=== PATIENT | female | born 1960 | race Caucasian/White ===

== ENCOUNTER 2021-10-27 01:25 | Emergency (ER) | payer BC ==
--- NOTE | 2021-10-27 01:59 | ERPHSYRPT ---
- History of Present Illness Time Seen by Provider: 10/27/21 01:45 Historian: patient Patient Subjective Stated Complaint: pt states she has been having diarrhea for two days with abdominal pain, states she has a history of diverticulitis. rartes pain as 8/10 in abdomen. also states she has hemmrhoids that are flared up. Triage Nursing Assessment: pt alert and oriented, walking slowly, holding abdomen, states she has pain in abdomen she rates as 8/10. pt appears pale and is grimacing and groaining in pain. Physician History: This is a 61-year-old white female whose had 2-day history of abdominal pain and diarrhea. Patient has history of diverticulitis and she thinks this is flared up. The multiple episodes of diarrhea has also flared up her hemorrhoids. Patient has a history of a cholecystectomy and hysterectomy in the past. She a lso has a history of elevated cholesterol, hypertension, fibromyalgia, irritable bowel syndrome and colitis. Patient has had morphine intravenously and Dilaudid intravenously in the past. They do not give her a rash or anaphylaxis. However, they make her feel odd and give her a sense of breathlessness. Timing/Duration: day(s) (2) Activities at Onset: none Quality: cramping Abdominal Pain Onset Location: generalized abdomen Pain Radiation: no radiation Severity of Pain-Max: moderate Severity of Pain-Current: moderate Associated Symptoms: diarrhea, nausea Previous symptoms: same symptoms as today, no recent treatment Allergies/Adverse Reactions: acetaminophen [From Vicodin] Allergy (Verified 10/27/21 01:45) codeine Allergy (Verified 10/27/21 01:47) hydrocodone [From Vicodin] Allergy (Verified 10/27/21 01:45) hydromorphone [From Dilaudid] Allergy (Verified 10/27/21 01:47) morphine Allergy (Verified 10/27/21 01:46) sulfamethoxazole [From Bactrim] Allergy (Verified 10/27/21 01:47) trimethoprim [From Bactrim] Allergy (Verified 10/27/21 01:47) Travel Risk - International Travel Have you traveled outside of the country in past 3 weeks: No - Coronavirus Screening Are you exhibiting any of the following symptoms?: Yes Symptoms: Vomiting/Diarrhea Close contact with a COVID-19 positive Pt in past 14-21 Days: No - Vaccine Status Have you recieved a Covid-19 vaccination: Yes Silo Erector: Unknown - Vaccination Dates Dates if Unknown: unknown - Review of Systems Constitutional: No Symptoms Eyes: No Symptoms Ears, Nose, & Throat: No Symptoms Respiratory: No Symptoms Cardiac: No Symptoms Abdominal/Gastrointestinal: Abdominal Pain, Nausea, Diarrhea Genitourinary Symptoms: No Symptoms Musculoskeletal: No Symptoms Skin: No Symptoms Neurological: No Symptoms Psychological: No Symptoms Endocrine: No Symptoms Hematologic/Lymphatic: No Symptoms Immunological/Allergic: No Symptoms All Other Systems: Reviewed and Negative - Past Medical History Pertinent Past Medical History: Yes Cardiac History: High Cholesterol, Hypertension Endocrine Medical History: Hypoglycemia Musculoskeletal History: Arthritis, Fibromyalgia GI Medical History: Colitis, Diverticulitis, Irritable Bowel Other Medical History: spastic esophagus, colon and bladder - Past Surgical History Past Surgical History: Yes Gastrointestinal: Cholecystectomy Genitourinary: Other Female Surgical History: Hysterectomy, Dilation & Curettage Other Surgical History: bladder lift - Social History Smoking Status: Never smoker Drug Use: none - Nursing Vital Signs Nursing Vital Signs: Initial Vital Signs Temperature 98.7 F 10/27/21 01:31 Pulse Rate 91 H 10/27/21 01:31 Respiratory Rate 18 10/27/21 01:31 Blood Pressure 169/103 10/27/21 01:31 O2 Sat by Pulse Oximetry 97 10/27/21 01:31 Pain Scale Pain Intensity 2 - Physical Exam General Appearance: mild distress, alert, anxiety Eye Exam: PERRL/EOMI Ears, Nose, Throat Exam: normal ENT inspection, moist mucous membranes Neck Exam: normal inspection, non-tender, supple, full range of motion Respiratory Exam: normal breath sounds, lungs clear, airway intact, No chest tenderness, No respiratory distress Cardiovascular Exam: regular rate/rhythm, normal heart sounds, normal peripheral pulses Gastrointestinal/Abdomen Exam: soft, normal bowel sounds, tenderness Pelvic Exam: not done Rectal Exam: not done Back Exam: normal inspection, normal range of motion, No CVA tenderness, No vertebral tenderness Extremity Exam: normal inspection, normal range of motion, pelvis stable Neurologic Exam: alert, oriented x 3, cooperative, dentures lab technician II-XII nml as tested, normal mood/affect, nml cerebellar function, nml station & gait, sensation nml Skin Exam: normal color, warm, dry Lymphatic Exam: No adenopathy SpO2 Interpretation: normal SpO2: 97 O2 Delivery: Room Air - Course Nursing assessment & vital signs reviewed: Yes Ordered Tests: Active Orders 24 hr Category Date Time Status IV Insertion STAT Care 10/27/21 02:02 Active ABDOMEN AND PELVIS W/0 CONTRAS [CT] Stat Exams 10/27/21 02:49 Taken AMYLASE Stat Lab 10/27/21 02:00 Completed BLOOD CULTURE Stat Lab 10/27/21 02:10 Received CBC W DIFF Stat Lab 10/27/21 02:00 Completed CMP Stat Lab 10/27/21 02:00 Completed LIPASE Stat Lab 10/27/21 02:00 Completed Lactic Acid Stat Lab 10/27/21 02:20 Completed UA W/RFX CULTURE Stat Lab 10/27/21 02:11 Completed Medication Summary Generic Name Dose Route Start Last Admin Trade Name Freq PRN Reason Stop Dose Admin Sodium Chloride 1,000 mls @ 999 mls/hr 10/27/21 03:42 10/27/21 04:01 Sodium Chloride 0.9% 1000 Ml IV 10/27/21 04:42 999 mls/hr .Q1H1M STA Administration Discontinued Medications Generic Name Dose Route Start Last Admin Trade Name Freq PRN Reason Stop Dose Admin Sodium Chloride 1,000 mls @ 999 mls/hr 10/27/21 02:02 10/27/21 03:17 Sodium Chloride 0.9% 1000 Ml IV 10/27/21 03:02 Infused .Q1H1M STA Infusion Sodium Chloride Confirm 10/27/21 02:08 Sodium Chloride 0.9% 1000 Ml Administered 10/27/21 02:09 Dose 1,000 mls @ ud .ROUTE .STK-MED ONE Sodium Chloride Confirm 10/27/21 03:56 Sodium Chloride 0.9% 1000 Ml Administered 10/27/21 03:57 Dose 1,000 mls @ ud .ROUTE .STK-MED ONE Ketorolac Tromethamine 30 mg 10/27/21 03:41 10/27/21 03:44 Ketorolac Tromethamine 30 Mg/Ml Inj IV 10/27/21 03:42 30 mg STAT ONE Administration Ketorolac Tromethamine Confirm 10/27/21 03:43 Ketorolac Tromethamine 30 Mg/Ml Inj Administered 10/27/21 03:44 Dose 30 mg .ROUTE .STK-MED ONE Meperidine HCl 12.5 mg 10/27/21 02:13 10/27/21 02:30 Meperidine Hcl 25 Mg Syringe IV 10/27/21 02:14 12.5 mg STAT ONE Administration Meperidine HCl Confirm 10/27/21 02:28 Meperidine Hcl 25 Mg Syringe Administered 10/27/21 02:29 Dose 25 mg .ROUTE .STK-MED ONE Metronidazole 500 mg 10/27/21 03:58 10/27/21 04:01 Metronidazole 500 Mg Tablet PO 10/27/21 03:59 500 mg STAT ONE Administration Metronidazole Confirm 10/27/21 04:00 Metronidazole 500 Mg Tablet Administered 10/27/21 04:01 Dose 500 mg .ROUTE .STK-MED ONE Ondansetron HCl 4 mg 10/27/21 02:02 10/27/21 02:09 Ondansetron Hcl 4 Mg/2 Ml Vial IV 10/27/21 02:03 4 mg STAT ONE Administration Ondansetron HCl Confirm 10/27/21 02:08 Ondansetron Hcl 4 Mg/2 Ml Vial Administered 10/27/21 02:09 Dose 4 mg .ROUTE .STK-MED ONE Lab/Rad Data: Laboratory Result Diagrams 10/27/21 02:00 10/27/21 02:00 Laboratory Results 10/27/21 10/27/21 10/27/21 Range/Units 03:01 02:20 02:11 WBC (4.0-10.5) x10^3/uL RBC (4.1-5.4) x10^6/uL Hgb (12.0-16.0) g/dL Hct (35-47) % MCV (78-100) fL MCH (26-32) pg MCHC (32-36) g/dL RDW (11.5-14.0) % Plt Count (150-450) x10^3/uL MPV (7.5-11.0) fL Gran % (36.0-66.0) % Immature Gran % (Auto) (0.00-0.4) % Nucleat RBC Rel Count (0.00-0.1) % Eos # (Auto) (0-0.5) x10^3/uL Immature Gran # (Auto) (0.00-0.03) x10^3u/L Absolute Lymphs (auto) (1.0-4.6) x10^3/uL Absolute Monos (auto) (0.0-1.3) x10^3/uL Absolute Nucleated RBC (0.00-0.01) x10^3u/L Lymphocytes % (24.0-44.0) % Monocytes % (0.0-12.0) % Eosinophils % (0.00-5.0) % Basophils % (0.0-0.4) % Absolute Granulocytes (1.4-6.9) x10^3/uL Basophils # (0-0.4) x10^3/uL Sodium (137-145) mmol/L Potassium (3.5-5.1) mmol/L Chloride (98-107) mmol/L Carbon Dioxide (22-30) mmol/L Anion Gap (5-15) MEQ/L BUN (7-17) mg/dL Creatinine (0.52-1.04) mg/dL Estimated GFR ML/MIN Glucose (74-106) mg/dL Lactic Acid 1.0 (0.4-2.0) Calcium (8.4-10.2) mg/dL Total Bilirubin (0.2-1.3) mg/dL AST (14-36) U/L ALT (0-35) U/L Alkaline Phosphatase (38-126) U/L Serum Total Protein (6.3-8.2) g/dL Albumin (3.5-5.0) g/dL Amylase (30-110) U/L Lipase (23-300) U/L Urinalys Dipstick Clnc MAIN LAB Urine Color YELLOW (YELLOW) Urine Appearance CLEAR (CLEAR) Urine pH 6.0 (5-6) Ur Specific [place] 1.020 (1.005-1.025) POC Urine Protein Conf NEGATIVE (Negative) Urine Ketones SMALL-15 (NEGATIVE) Urine Nitrite NEGATIVE (NEGATIVE) Urine Bilirubin NEGATIVE (NEGATIVE) Urine Urobilinogen 0.2 (0-1) mg/dL Urine Leukocytes NEGATIVE (NEGATIVE) Urine WBC (Auto) NONE (0-5) /HPF Urine RBC (Auto) NONE (0-2) /HPF U Epithel Cells (Auto) RARE (FEW) /HPF Urine Bacteria (Auto) NONE (NEGATIVE) /HPF Urine RBC TRACE-INTACT (0-5) Paul/ul Ur Culture Indicated? NO Urine Glucose NEGATIVE (NEGATIVE) mg/dL C. difficile Screen POSITIVE (NEGATIVE) C.difficile [id number] PRESUMPTIVE NEGATIVE (NEGATIVE) 10/27/21 10/27/21 Range/Units 02:00 02:00 WBC 12.8 H (4.0-10.5) x10^3/uL RBC 4.46 (4.1-5.4) x10^6/uL Hgb 13.4 (12.0-16.0) g/dL Hct 41.0 (35-47) % MCV 91.9 (78-100) fL MCH 30.0 (26-32) pg MCHC 32.7 (32-36) g/dL RDW 13.0 (11.5-14.0) % Plt Count 288 (150-450) x10^3/uL MPV 10.8 (7.5-11.0) fL Gran % 75.7 H (36.0-66.0) % Immature Gran % (Auto) 0.4 (0.00-0.4) % Nucleat RBC Rel Count 0.0 (0.00-0.1) % Eos # (Auto) 0.14 (0-0.5) x10^3/uL Immature Gran # (Auto) 0.05 H (0.00-0.03) x10^3u/L Absolute Lymphs (auto) 1.88 (1.0-4.6) x10^3/uL Absolute Monos (auto) 1.00 (0.0-1.3) x10^3/uL Absolute Nucleated RBC 0.00 (0.00-0.01) x10^3u/L Lymphocytes % 14.7 L (24.0-44.0) % Monocytes % 7.8 (0.0-12.0) % Eosinophils % 1.1 (0.00-5.0) % Basophils % 0.3 (0.0-0.4) % Absolute Granulocytes 9.68 H (1.4-6.9) x10^3/uL Basophils # 0.04 (0-0.4) x10^3/uL Sodium 139 (137-145) mmol/L Potassium 3.6 (3.5-5.1) mmol/L Chloride 103 (98-107) mmol/L Carbon Dioxide 18 L (22-30) mmol/L Anion Gap 20.9 H (5-15) MEQ/L BUN 14 (7-17) mg/dL Creatinine 1.00 (0.52-1.04) mg/dL Estimated GFR > 60.0 ML/MIN Glucose 136 H (74-106) mg/dL Lactic Acid (0.4-2.0) Calcium 9.6 (8.4-10.2) mg/dL Total Bilirubin 0.60 (0.2-1.3) mg/dL AST 21 (14-36) U/L ALT 21 (0-35) U/L Alkaline Phosphatase 104 (38-126) U/L Serum Total Protein 8.5 H (6.3-8.2) g/dL Albumin 4.4 (3.5-5.0) g/dL Amylase 61 (30-110) U/L Lipase 54 (23-300) U/L Urinalys Dipstick Clnc Urine Color (YELLOW) Urine Appearance (CLEAR) Urine pH (5-6) Ur Specific [place] (1.005-1.025) POC Urine Protein Conf (Negative) Urine Ketones (NEGATIVE) Urine Nitrite (NEGATIVE) Urine Bilirubin (NEGATIVE) Urine Urobilinogen (0-1) mg/dL Urine Leukocytes (NEGATIVE) Urine WBC (Auto) (0-5) /HPF Urine RBC (Auto) (0-2) /HPF U Epithel Cells (Auto) (FEW) /HPF Urine Bacteria (Auto) (NEGATIVE) /HPF Urine RBC (0-5) Paul/ul Ur Culture Indicated? Urine Glucose (NEGATIVE) mg/dL C. difficile Screen (NEGATIVE) C.difficile [id number] (NEGATIVE) - Progress Progress: improved, pain not gone completely, re-examined Counseled pt/family regarding: lab results, diagnosis - Departure Departure Disposition: Home Clinical Impression: Clostridium difficile diarrhea Condition: Stable Critical Care Time: No Additional Instructions: Sitz bath and will warm soapy water or warm Epson salt water twice a day to help with hemorrhoid pain. Drink plenty of clear liquids before advancing diet. Take your medication as prescribed. Use ibuprofen for pain control. Follow-up with your primary care physician for further management. Prescriptions: Metronidazole 500 mg [Flagyl 500 MG] 500 mg PO TID #21 tablet
[2021-10-27] MEDS ORDERED: Sodium Chloride 0.9% 1000 ML 1,000 ML IV STA ×2 (02:02→03:42)
[2021-10-27] MEDS ORDERED: Zofran 4 MG/2 ML VIAL IV ONE (02:02)
[2021-10-27] MEDS ORDERED: Zofran 4 MG/2 ML VIAL ONE (02:08)
[2021-10-27] MEDS ORDERED: Sodium Chloride 0.9% 1000 ML 1,000 ML ONE ×2 (02:08→03:56)
[2021-10-27] MEDS ORDERED: DEMEROL 25MG SYRINGE IV ONE (02:13)
[2021-10-27 02:22] LABS: Absolute Neutrophil Ct (ANC) 9.68 x10^3/uL (1.4-6.9); Basophil (Absolute #) 0.04 x10^3/uL (0-0.4); Eosinophil % 1.1 % (0.00-5.0); Eosinophil (Absolute #) 0.14 x10^3/uL (0-0.5); Hemoglobin 13.4 g/dL (12.0-16.0); Lymphocyte (Absolute #) 1.88 x10^3/uL (1.0-4.6); Lymphocytes % 14.7 % (24.0-44.0); Mean Cell Volume 91.9 fL (78-100); Mean Corpuscular Hgb Concent. 32.7 g/dL (32-36); Mean Platelet Volume 10.8 fL (7.5-11.0); Monocytes % 7.8 % (0.0-12.0); Neutrophil % 75.7 % (36.0-66.0); Platelet Count 288 x10^3/uL (150-450); Red Blood Count 4.46 x10^6/uL (4.1-5.4); White Blood Count 12.8 x10^3/uL (4.0-10.5)
[2021-10-27] MEDS ORDERED: DEMEROL 25MG SYRINGE ONE (02:28)
[2021-10-27 02:31] LABS: Appearance CLEAR (CLEAR); Bilirubin NEGATIVE (NEGATIVE); Glucose NEGATIVE (NEGATIVE); Ketones SMALL-15 (NEGATIVE)
[2021-10-27 02:32] LABS: Dipstick done @ ? MAIN LAB; Nitrite NEGATIVE (NEGATIVE); Protein,Urine Dip NEGATIVE (Negative); RBC TRACE-INTACT Ery/ul (0-5); Urobilinogen 0.2 mg/dL (0-1)
[2021-10-27 02:33] LABS: Epithelial Cells RARE /HPF (FEW); Urine Cultured Indicated? NO
[2021-10-27 02:35] LABS: ALBUMIN 4.4 g/dL (3.5-5.0); ALKALINE PHOSPHATASE 104 U/L (38-126); AMYLASE 61 U/L (30-110); ANION GAP 20.9 MEQ/L (5-15); BLOOD UREA NITROGEN 14 mg/dL (7-17); CHLORIDE 103 mmol/L (98-107); Calcium 9.6 mg/dL (8.4-10.2); Carbon Dioxide 18 mmol/L (22-30); EST GLOMERULAR FILTRATION RATE > 60.0 ML/MIN; Glucose 136 mg/dL (74-106); LIPASE 54 U/L (23-300); Potassium 3.6 mmol/L (3.5-5.1); SGOT/AST 21 U/L (14-36); SGPT/ALT 21 U/L (0-35); SODIUM 139 mmol/L (137-145); Total Protein 8.5 g/dL (6.3-8.2)
[2021-10-27] MEDS ORDERED: TORAdol 30 mg Injection IV ONE (03:41)
[2021-10-27] MEDS ORDERED: TORAdol 30 mg Injection ONE (03:43)
[2021-10-27 03:46] LABS: 027 TOX PROD PRESUMPTIVE NEGATIVE (NEGATIVE)
[2021-10-27 03:57] LABS: TOXIGENIC C. DIFF ORG POSITIVE (NEGATIVE)
[2021-10-27] MEDS ORDERED: Flagyl 500 MG PO ONE (03:58)
[2021-10-27] MEDS ORDERED: Flagyl 500 MG ONE (04:00)
[2021-10-27 05:05] VITALS: BP 126/75; PULSE 85; O2SAT 95
--- NOTE | 2021-10-27 07:55 | XRAY ---
Indication: Abdomen pain and bloody diarrhea. History of hemorrhoids. Multiple contiguous axial images obtained through the abdomen and pelvis without contrast. Comparison: None Lung bases demonstrates minimal left base fibrosis/scarring. No infiltrate or effusion. Heart not enlarged. Partially visualized bilateral breast implants. Noncontrasted stomach and bowel loops appear nonobstructed. Normal appendix. Mild diffuse scattered colonic diverticulosis without diverticulitis. Previous cholecystectomy and hysterectomy. No free fluid/air. Left upper kidney demonstrates incidental 1.6 cm angiomyolipoma. Remaining liver, pancreas, spleen, adrenal glands, kidneys, ureters, bladder, and aorta are unremarkable for noncontrast exam. Osseous structures intact with minimal degenerative changes throughout the spine, 5 mm L2 bone island, and moderate levorotoscoliosis centered at L3. No ventral or inguinal hernias. Impression: 1. Colonic diverticulosis, left renal angiomyolipoma, and chronic bony findings. 2. Remaining CT abdomen/pelvis without contrast exam is negative. Comment: Preliminary interpretation made by [facility]. No critical discrepancy.
== END 2021-10-27 05:20 | disposition home or self-care (01) ==
LOC: ED 01:25
DX: A04.72 Enterocolitis due to Clostridium difficile, not specified as recurrent (principal); R10.84 Generalized abdominal pain; R11.0 Nausea; E78.5 Hyperlipidemia, unspecified; I10 Essential (primary) hypertension
CPT/HCPCS: 36000; 36415; 74176; 80053; 81015; 82150; 83605; 83690; 85025; 87040; 87493; 96360; 96361; 96374; 96375; 99284; J1885; J2175; J2405; A9270-GY